=== PATIENT | male | born 1965 | race Caucasian/White ===

== ENCOUNTER 2021-05-27 16:44 | Emergency (ER) | payer OTHER ==
[~2021-05-27] VITALS: Ht 165.1 cm; Wt 99.8 kg
[2021-05-27 16:54] VITALS: BP 117/81
[2021-05-27] MEDS ORDERED: LORAZEPAM 2MG TA2 M1 PO ×2 (16:59→17:49)
== END 2021-05-27 17:57 | disposition home or self-care (01) ==
LOC: ER 16:44
DX: F41.9 Anxiety disorder, unspecified (principal); Z76.0 Encounter for issue of repeat prescription; Z91.041 Radiographic dye allergy status; Z79.899 Other long term (current) drug therapy